=== PATIENT | female | born 1960 | race Caucasian/White ===

== ENCOUNTER 2016-12-16 14:14 | Emergency (ER) | payer OTHER ==
[2016-12-16] MEDS ORDERED: ZOMIG5 M2 (14:53)
[2016-12-16] MEDS ORDERED: REMERON15 M1 PO (14:54)
[2016-12-16] MEDS ORDERED: ZONEGRAN100 M2 PO (14:54)
[2016-12-16] MEDS ORDERED: CYMBALTA60 M1 PO (14:54)
== END 2016-12-16 16:18 ==
LOC: EDMED 14:14
DX: G43.909 Migraine, unspecified, not intractable, without status migrainosus (principal); Z90.89 Acquired absence of other organs
CPT/HCPCS: J1200; J1885; J2765; J7030